=== PATIENT | male | born 1990 | race Caucasian/White ===

== ENCOUNTER 2021-11-12 14:45 | Observation (INO) ==
[2021-11-12] MEDS ORDERED: ASPIRIN CHEW 324 MG PO STA (15:22)
[2021-11-12] MEDS ORDERED: NITROGLYCERIN SL 0.4 MG/TAB TAB SL PRN (15:22)
[2021-11-12 15:37] LABS: Basophils # (auto) 0.01 K/uL (0-0.2); Basophils % (auto) 0.1 %; Eosinophils # (auto) 0.14 K/uL (0-0.5); Eosinophils % (auto) 1.7 %; Hemoglobin 14.6 g/dL (14.0-18.0); Immature Granulocytes # (auto) 0.01 K/uL (0.00-0.02); Immature Granulocytes % (auto) 0.1 %; Lymphocytes # (auto) 3.21 K/uL (1.2-3.4); Lymphocytes % (auto) 39.1 %; Mean Corpuscular Hemoglobin 29.5 pg (25-34); Mean Corpuscular Hgb Conc 34.8 g/dL (32-36); Mean Corpuscular Volume 84.8 fL (80-100); Mean Platelet Volume 9.8 fL (7.4-10.4); Monocytes # (auto) 0.53 K/uL (0.11-0.59); Monocytes % (auto) 6.4 %; Neutrophils # (auto) 4.32 K/uL (1.4-6.5); Neutrophils % (auto) 52.6 %; Platelet Count 256 K/uL (130-400); RDW Coefficient of Variation 12.9 % (11.5-14.5); RDW Standard Deviation 39.4 fL (36.4-46.3); Red Blood Count 4.95 M/uL (4.7-6.1); White Blood Count 8.22 K/uL (4.8-10.8)
[2021-11-12] MEDS ORDERED: NITROGLYCERIN 2% OINTMENT 30GM TUBE EXT STA (15:40)
[2021-11-12 15:49] LABS: D Dimer 220 ug/L FEU (0-500)
--- NOTE | 2021-11-12 15:51 | Emergency Department Note ---
Impression & Plan Left-sided chest pain, Hypertensive emergency, Abnormal ECG ED Provider Note INFORMANT: Patient ED PROVIDER(S): Jerad Hanna MD CHIEF COMPLAINT: Chest pain PLAN: Disposition: Admitted Condition: Good Outpatient prescription management: none Referral: None MEDICAL DECISION MAKING: Patient presented because of left-sided chest pain. His ECG was abnormal and had T wave inversions. No prior for comparison. The patient was markedly hypertensive with a systolic blood pressure of 241. Recheck revealed 250. The patient was given oral aspirin, sublingual nitroglycerin, and Nitropaste. Patient was reassessed and felt better. His pain resolved. He was still markedly hypertensive albeit somewhat better. He was given a dose of IV labetalol. I discussed further management in the hospital and the patient was in agreement. Consultation was made to the [facility] service. Patient was evaluated in the ER admitted for further management. Triage Nursing notes reviewed and agree them. Vital Signs: reviewed and remarkable for marked hypertension. Differential diagnosis: Hypertensive emergency, cardiac ischemia, aortic dissection, pulmonary embolism, pneumothorax, pneumonia, pericarditis, myocarditis, esophageal rupture, GERD, cholecystitis, pancreatitis, musculoskeletal, as well as other pathologies. Diagnostics interpreted by me: ECG: Twelve-lead ECG reveals a normal sinus rhythm at 91 bpm. T wave abnormality laterally with inversions present. No ST elevation. No PACs or PVCs. No prior for comparison. Cardiac Monitoring: Cardiac monitoring ordered by me: The patient was placed on continuous cardiac monitoring and observed. It revealed a sinus tachycardia rhythm at 102 beats per minute without ectopy or evidence of dysrhythmia. Imaging studies: Chest x-ray. Findings: A chest x-ray was performed and revealed no pneumothorax, effusion, infiltrate, pulmonary edema, free air under the diaphragm, or wide mediastinum. Impression: No acute disease. HPI: The patient is a 31year old male who presents to the Emergency Room with complaints of left-sided chest. This started last night and is waxing and waning.. The patient also notes the following associated symptoms, left arm. The patient has taken time relieving factors. Current pain is rated as 1 in the chest and 3 in the arm over 10. Patient states pain was up to a 5. Patient was previously diagnosed with hypertension but has not taken medication in over 1 year due to financial reasons. Pt denies LOC, headache, fevers, chills, diaphoresis, visual changes, neck pain, breathing difficulties, nausea, vomiting, abdominal pain, back pain, melena, hematochezia, urinary symptoms, numbness, weakness, lymphadenopathy, rash, or other complaints. ROS: See above HPI for pertinent positives & negatives. A total of 10 systems reviewed and were otherwise negative. PAST MEDICAL HISTORY:See Below , hypertension PAST SURGICAL HISTORY:See Below, FAMILY HISTORY:See Below, early CAD, hypertension SOCIAL HISTORY:See Below, employed HOME MEDICATIONS:See Below ALLERGIES:See Below VITALS:See Below PHYSICAL EXAMINATION: GENERAL: Awake, alert, well-appearing, in no distress HENT: Normocephalic, atraumatic. Oropharynx unremarkable. EYES: Normal conjunctiva. Sclera non-icteric. NECK: Inspection normal. Non-tender. Supple. No nuchal rigidity. FROM. No masses. RESPIRATORY: Clear to auscultation. No wheezes. No rales. Normal respiratory effort. CARDIAC: Normal rate. Normal rhythm. No murmurs. No rubs. Extremities warm and well perfused. Pulses equal. No JVD. GI: Soft, non-distended. No tenderness to palpation. No rebound or guarding. No masses. RECTAL: Deferred. MUSCULOSKELETAL: Atraumatic. Chest examination reveals no tenderness. The back is symmetrical on inspection without obvious abnormality. There is no CVA tenderness to palpation. No joint edema. LOWER EXTREMITIES: Calves are equal size bilaterally and non-tender. No edema. No discoloration. NEURO: Normal sensorium. No sensory or motor deficits noted. SKIN: No rash or jaundice noted. Jerad Hanna MD Past Med/Surg History Medical History (Updated 11/12/21 @ 15:51 by Jerad Hanna MD) Asthma Attention deficit hyperactivity disorder Dental decay Elevated blood pressure reading without diagnosis of hypertension Hypertension Morbid obesity Morbid obesity with BMI of 50.0-59.9, adult Palpitations Sinusitis Surgical History (Updated 08/17/20 @ 12:51 by Nuris Arndt RN) H/O tooth extraction Family History (Updated 08/17/20 @ 12:52 by Nuris Arndt RN) Grandmother Cancer Diabetes Uncle Hypertension Grandfather Hypertension Social History (Updated 08/17/20 @ 12:53 by Nuris Arndt RN) Smoking Status: Never smoker Hx Alcohol Use: Yes Alcohol Intake Frequency: Monthly or Less Hx Substance Use: Yes Non-Prescribed Medications: Marijuana Last Used Subst ance: Unknown Last Used Substance Other:: "long ago" Preferred Language: Croatian marital status: Life Partner current occupational status: employed current occupation: automotive glass installer Feels Safe at Home: Yes Allergies Allergies Allergy/AdvReac Type Severity Reaction Status Date / Time pheniramine Allergy Unknown HALLUCINATI Verified 08/17/20 12:49 ONS phenyltoloxamine Allergy Unknown HALLUCINATI Verified 08/17/20 12:49 ONS pyrilamine Allergy Unknown HALLUCINATI Verified 08/17/20 12:49 ONS MUCINEX Allergy Unknown Swelling Uncoded 08/17/20 12:49 of throat. Home Meds Previous Rx's Medication Instructions Recorded amlodipine 5 mg tablet 5 mg PO DAILY #30 tab 08/08/20 Results & Data (ED) Vital Signs Vital Signs - 24 hr 11/12/21 15:00 11/12/21 15:40 11/12/21 15:50 Temperature 36.9 C Temperature Source Temporal Artery Scan Pulse Rate 102 H 88 95 H Pulse Rate [Apical] Pulse Rate from SpO2 Sensor 88 95 H Pulse Rhythm Pulse Rhythm [Apical] Pulse Strength [Apical] Respiratory Rate 18 19 22 Respiratory Effort / Characteristics Non-Labored Respiratory Depth Normal Respiratory Pattern Blood Pressure 241/157 H Blood Pressure [Left Arm] Blood Pressure Mean 185 Blood Pressure Mean [Left Arm] Blood Pressure Position [Left Arm] Pulse Oximetry 96 98 96 Oxygen Delivery Method Room Air Room Air Room Air Sepsis Recent Fever Within 48 Hours No Sepsis New/Unexplained Change in Mental Status No Sepsis Action Taken by Nursing No Action Required 11/12/21 15:51 11/12/21 16:00 11/12/21 16:10 Temperature Temperature Source Pulse Rate 93 H 83 83 Pulse Rate [Apical] 96 H Pulse Rate from SpO2 Sensor 93 H 83 83 Pulse Rhythm Regular Pulse Rhythm [Apical] Regular Pulse Strength [Apical] Normal Respiratory Rate 22 26 H 26 H Respiratory Effort / Characteristics Non-Labored Respiratory Depth Normal Respiratory Pattern Regular Blood Pressure 198/136 H 216/139 H 222/152 H Blood Pressure [Left Arm] 198/136 H Blood Pressure Mean 156 164 175 Blood Pressure Mean [Left Arm] 156 Blood Pressure Position [Left Arm] Lying Pulse Oximetry 95 96 96 Oxygen Delivery Method Room Air Sepsis Recent Fever Within 48 Hours Sepsis New/Unexplained Change in Mental Status Sepsis Action Taken by Nursing 11/12/21 16:32 Temperature Temperature Source Pulse Rate Pulse Rate [Apical] 76 Pulse Rate from SpO2 Sensor Pulse Rhythm Pulse Rhythm [Apical] Regular Pulse Strength [Apical] Respiratory Rate 18 Respiratory Effort / Characteristics Non-Labored Respiratory Depth Normal Respiratory Pattern Regular Blood Pressure Blood Pressure [Left Arm] 236/146 H Blood Pressure Mean Blood Pressure Mean [Left Arm] 176 Blood Pressure Position [Left Arm] Lying Pulse Oximetry 97 Oxygen Delivery Method Room Air Sepsis Recent Fever Within 48 Hours Sepsis New/Unexplained Change in Mental Status Sepsis Action Taken by Nursing Laboratory Data Result diagrams: 11/12/21 15:20 11/12/21 15:20 Lab Results 11/12/21 11/12/21 11/12/21 Range/Units 15:20 15:20 15:20 WBC 8.22 (4.8-10.8) K/uL RBC 4.95 (4.7-6.1) M/uL Hgb 14.6 (14.0-18.0) g/dL Hct 42.0 (42-52) % MCV 84.8 (80-100) fL MCH 29.5 (25-34) pg MCHC 34.8 (32-36) g/dL RDW Std Deviation 39.4 (36.4-46.3) fL RDW Coeff of Noelle 12.9 (11.5-14.5) % Plt Count 256 (130-400) K/uL MPV 9.8 (7.4-10.4) fL Immature Gran % (Auto) 0.1 % Neut % (Auto) 52.6 % Lymph % (Auto) 39.1 % [place] % (Auto) 6.4 % Eos % (Auto) 1.7 % Baso % (Auto) 0.1 % Neut # (Auto) 4.32 (1.4-6.5) K/uL Lymph # (Auto) 3.21 (1.2-3.4) K/uL [place] # (Auto) 0.53 (0.11-0.59) K/uL Eos # (Auto) 0.14 (0-0.5) K/uL Baso # (Auto) 0.01 (0-0.2) K/uL Immature Gran # (Auto) 0.01 (0.00-0.02) K/uL D-Dimer 220 (0-500) ug/L FEU Sodium (136-145) mmol/L Potassium (3.5-5.1) mmol/L Chloride (98-107) mmol/L Carbon Dioxide (21-32) mmol/L Anion Gap (3-11) BUN (6-23) mg/dl Creatinine (0.6-1.4) mg/dl Est Cr Clr Drug Dosing ml/min Est GFR ( Amer) ml/min Est GFR (Non-Af Amer) ml/min BUN/Creatinine Ratio (10-20) Glucose (70-99(Fasting)) mg/dl Calcium (8.5-10.1) mg/dl Total Bilirubin (0.2-1.0) mg/dl AST (13-39) U/L ALT (7-52) U/L Alkaline Phosphatase (34-104) U/L Troponin I High Sens 12.0 (0-20) pg/ml Total Protein (6.0-8.3) gm/dl Albumin (3.4-5.0) gm/dl Globulin (2.5-4.0) gm/dl Albumin/Globulin Ratio (0.9-2) Lipase (11-82) U/L 11/12/21 Range/Units 15:20 WBC (4.8-10.8) K/uL RBC (4.7-6.1) M/uL Hgb (14.0-18.0) g/dL Hct (42-52) % MCV (80-100) fL MCH (25-34) pg MCHC (32-36) g/dL RDW Std Deviation (36.4-46.3) fL RDW Coeff of Noelle (11.5-14.5) % Plt Count (130-400) K/uL MPV (7.4-10.4) fL Immature Gran % (Auto) % Neut % (Auto) % Lymph % (Auto) % [place] % (Auto) % Eos % (Auto) % Baso % (Auto) % Neut # (Auto) (1.4-6.5) K/uL Lymph # (Auto) (1.2-3.4) K/uL [place] # (Auto) (0.11-0.59) K/uL Eos # (Auto) (0-0.5) K/uL Baso # (Auto) (0-0.2) K/uL Immature Gran # (Auto) (0.00-0.02) K/uL D-Dimer (0-500) ug/L FEU Sodium 141 (136-145) mmol/L Potassium 3.7 (3.5-5.1) mmol/L Chloride 104 (98-107) mmol/L Carbon Dioxide 30 (21-32) mmol/L Anion Gap 7 (3-11) BUN 18 (6-23) mg/dl Creatinine 1.23 (0.6-1.4) mg/dl Est Cr Clr Drug Dosing 124.0 ml/min Est GFR ( Amer) 91.4 ml/min Est GFR (Non-Af Amer) 78.8 ml/min BUN/Creatinine Ratio 14.6 (10-20) Glucose 107 H (70-99(Fasting)) mg/dl Calcium 9.0 (8.5-10.1) mg/dl Total Bilirubin 0.4 (0.2-1.0) mg/dl AST 17 (13-39) U/L ALT 25 (7-52) U/L Alkaline Phosphatase 67 (34-104) U/L Troponin I High Sens (0-20) pg/ml Total Protein 7.4 (6.0-8.3) gm/dl Albumin 4.3 (3.4-5.0) gm/dl Globulin 3.1 (2.5-4.0) gm/dl Albumin/Globulin Ratio 1.4 (0.9-2) Lipase 23 (11-82) U/L Administered Medications Nitroglycerin (Nitroglycerin Sl 0.4 Mg/Tab Tab) 0.4 mg SL UD PRN PRN Reason: Chest Pain Stop: 12/12/21 15:21 Last Admin: 11/12/21 15:47 Dose: 0.4 mg Documented by: [id number] Discontinued Medications Aspirin (Aspirin Chew 324 Mg) 324 mg PO NOW STA Stop: 11/12/21 15:23 Last Admin: 11/12/21 15:47 Dose: 324 mg Documented by: [id number] Labetalol HCl (Labetalol Hcl Iv 5 Mg/Ml 20ml) 10 mg IV NOW STA Stop: 11/12/21 16:19 Last Admin: 11/12/21 16:28 Dose: 10 mg Documented by: [id number] Cosigned by: [id number] Nitroglycerin (Nitroglycerin 2% Ointment 30gm Tube) 0.5 inch EXT NOW STA Stop: 11/12/21 15:41 Last Admin: 11/12/21 15:48 Dose: 0.5 inch Documented by: [id number] Imaging Data Radiologist's Impression: Chest X-Ray 11/12/21 15:23 XR chest 1V portable HISTORY: Atypical Chest Pain COMPARISON: None. FINDINGS: There are low lung volumes. The cardiac silhouette is mildly enlarged. No focal lung consolidations to suggest pneumonia. No evidence for pulmonary edema. No pleural fusions. No pneumothorax. IMPRESSION: Mild enlargement of the cardiac silhouette. This may be accentuated by the low lung volumes. ACT 112: Negative or not required by law. Electronically signed by: Griffin Maharaj M.D. 11/12/2021 3:57 PM Discharge Plan Visit Data Chief Complaint: Chest Pain Stated Complaint: CHEST PAINS, LEFT ARM PAIN ED Provider: Jerad Hanna Discharge Problem: Left-sided chest pain, Hypertensive emergency, Abnormal ECG Forms Stand Alone Forms: [facility] [employer] Prescriptions Prescriptions: No Action amlodipine 5 mg tablet 5 mg PO DAILY Qty: 30 RF: 0 Referrals Referrals: PCP,NO [Primary Care Provider] -
--- NOTE | 2021-11-12 15:58 | XRay Report ---
XR chest 1V portable HISTORY: Atypical Chest Pain COMPARISON: None. FINDINGS: There are low lung volumes. The cardiac silhouette is mildly enlarged. No focal lung consol idations to suggest pneumonia. No evidence for pulmonary edema. No pleural fusions. No pneumothorax. IMPRESSION: Mild enlargement of the cardiac silhouette. This may be accentuated by the low lung volumes. ACT 112: Negative or not required by law. Electronically signed by: Griffin Maharaj M.D. 11/12/2021 3:57 PM
[2021-11-12 16:00] LABS: Albumin Globulin Ratio 1.4 (0.9-2); Albumin Level 4.3 gm/dl (3.4-5.0); BUN Creatinine Ratio 14.6 (10-20); Bilirubin,Total 0.4 mg/dl (0.2-1.0); Est GFR (African American) 91.4 ml/min; Est GFR (Non-African American) 78.8 ml/min; Globulin 3.1 gm/dl (2.5-4.0); Potassium 3.7 mmol/L (3.5-5.1); Total Protein 7.4 gm/dl (6.0-8.3)
[2021-11-12] MEDS ORDERED: LABETALOL HCL IV 5 MG/ML 20ML IV STA ×2 (16:18→18:47)
[2021-11-12] MEDS ORDERED: hydrALAZINE HCL 20 MG/ML VIAL IV PRN (16:41)
[2021-11-12] MEDS ORDERED: LABETALOL HCL IV 5 MG/ML 20ML IV PRN ×2 (16:41→19:37)
--- NOTE | 2021-11-12 16:59 | History & Physical Report ---
Date of Service November 12, 2021 Assessment & Plan (1) Left-sided chest pain: (2) Hypertensive emergency: Plan: #. Chest pressure/rule out ACS #. Hypertensive emergency Patient has history of hypertension, noncompliance with medication [see HPI]. Presenting blood pressure of 241/157 Patient presented with chest pressure, radiating to left arm today prior to presentation [see HPI] Admitting EKG with lateral T wave inversion, EKG as needed for chest pain, patient reporting some improvement with chest pain after receiving nitro sublingual/Nitropaste/aspirin full dose in the ED. Trend troponin, cardiology consult. Echo. Lisinopril HCTZ combination started, uptitrate medications as appropriate As needed blood pressure medications ordered. Patient counseled regarding the seriousness of his blood pressure management and the consequences of his noncompliance with medication/medical follow-up. Advised low-salt diet. Patient will need to establish PCP upon discharge and might need follow-up with cardiology as an outpatient. #. DVT prophylaxis: Heparin #. Full code History of Present Illness Chief Complaint: Chest pressure Primary Care Provider: NO PCP 31-year-old morbidly obese patient with PMH of hypertension, noncompliance [never took his previously prescribed lisinopril HCTZ tablet and his amlodipine tablets at different times], with no doctor follow-up in the last 6 to 7 years, with extensive cardiac history in the family presented to the ED 11/12 with complaint of chest pressure since last evening prior to arrival. Per patient, his chest pressure developed at around 6 PM yesterday when he was playing video games, 3/10 in intensity, has been continued ever since upto the presentation to ED when the pain got better with the nitro sublingual/nitro paste and full dose aspirin. He also reports pain better with rest but cannot figure any aggravating factors. He also complained of left arm pain that started 20-minute prior to arrival to the ED which also improved with the medications in the ED. Patient reports having the feeling of palpitation when the chest pressure started but no diaphoresis or nausea. Patient denies headache/dizziness/sore throat/cough/belly pain/any acute changes in his bowel or bladder habits/other review of symptoms. Patient has history of hypertension, was prescribed lisinopril HCTZ and amlodipine at different times, never took any of the medication, never followed up with any doctors in the last 6 to 7 years. 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 Family history significant for every uncle having RI before age 30, patient reports that his grandfather of RI in his 50s. His grandmother has diabetes per patient. Patient denies smoking tobacco, drinks maybe once a month, very occasionally uses marijuana, no other recreational drug use. Full code Allergies Allergy/AdvReac Type Severity Reaction Status Date / Time pheniramine Allergy Unknown HALLUCINATI Verified 08/17/20 12:49 ONS phenyltoloxamine Allergy Unknown HALLUCINATI Verified 08/17/20 12:49 ONS pyrilamine Allergy Unknown HALLUCINATI Verified 08/17/20 12:49 ONS MUCINEX Allergy Unknown Swelling Uncoded 08/17/20 12:49 of throat. Home Medications Medication Instructions Recorded Confirmed Type amlodipine 5 mg tablet 5 mg PO DAILY #30 tab 08/08/20 08/17/20 Rx Past Med/Surg History Medical History (Updated 11/12/21 @ 15:51 by Jerad Hanna MD) Asthma Attention deficit hyperactivity disorder Dental decay Elevated blood pressure reading without diagnosis of hypertension Hypertension Morbid obesity Morbid obesity with BMI of 50.0-59.9, adult Palpitations Sinusitis Surgical History (Updated 08/17/20 @ 12:51 by Nuris Arndt RN) H/O tooth extraction Family History (Updated 08/17/20 @ 12:52 by Nuris Arndt RN) Grandmother Cancer Diabetes Uncle Hypertension Grandfather Hypertension Social History (Updated 08/17/20 @ 12:53 by Nuris Arndt RN) Smoking Status: Never smoker Hx Alcohol Use: Yes Alcohol Intake Frequency: Monthly or Less Hx Substance Use: Yes Non-Prescribed Medications: Marijuana Last Used Substance: Unknown Last Used Substance Other:: "long ago" Preferred Language: Qatari marital status: Life Partner current occupational status: employed current occupation: automotive mechanic Feels Safe at Home: Yes Review of Systems Review of Systems: Negative as otherwise mentioned in HPI. Physical Exam Physical Exam: GENERAL: Alert and oriented x3. NAD, on RA. Morbidly obese HEENT: No pallor, no icterus. Pupils equal, round and reactive to light. Oral mucosa moist. NECK: No JVD, no neck masses. HEART: S1 and S2 heard. Regular rate and rhythm. No murmur, no gallop. RESPIRATORY SYSTEM: Normal AP diameter. No accessory muscle use. No wheezing, no crackles. ABDOMEN: Soft, bowel sounds present, nontender, no distention. CENTRAL NERVOUS SYSTEM: No facial droop. Speech is clear. Obeys simple commands. Moves extremities. EXTREMITIES: No edema, no erythema seen. Results & Data Results & Data ([facility]) Vital Signs (Past 12 Hours) Vital Signs Temp Pulse Pulse Resp BP BP Pulse Ox 11/12/21 16:32 76 18 236/146 H 97 11/12/21 16:10 83 26 H 222/152 H 96 11/12/21 16:00 83 26 H 216/139 H 96 11/12/21 15:51 93 H 96 H 22 198/136 H 198/136 H 95 11/12/21 15:50 95 H 22 96 11/12/21 15:40 88 19 98 11/12/21 15:00 36.9 C 102 H 18 241/157 H 96 Code Status & VTE Plan VTE Prophylaxis Plan VTE Prophylaxis will be ordered: Yes
[2021-11-12] MEDS ORDERED: LISINOPRIL/HCTZ 10/12.5MG TAB PO SCH (17:45)
[2021-11-12] MEDS ORDERED: hydrALAZINE HCL 20 MG/ML VIAL IV STA (19:56)
[2021-11-12] MEDS: NITROGLYCERIN 2% OINTMENT 30GM TUBE EXT SCH (20:19)
[2021-11-12] MEDS ORDERED: lisinopril 10 MG TAB PO STA (21:16)
[2021-11-12] MEDS: HEPARIN SOD 5,000 UNIT/0.5 ML VIAL SQ SCH (22:10)
[2021-11-13] MEDS: NITROGLYCERIN 2% OINTMENT 30GM TUBE EXT SCH ×4 (01:22→20:00)
[2021-11-13 01:42] LABS: Appearance Urine Clear (Clear); Bilirubin Urine Negative (Negative); Blood Urine Negative (Negative); Color Urine Yellow; Glucose Urine UA Negative (Negative); Ketones Urine Negative (Negative); Leukocyte Esterase Urine Negative (Negative); Nitrite Urine Negative (Negative); Protein Urine Negative (Negative); Specific Gravity Urine 1.016 (1.000-1.030); Urobilinogen Urine Negative (Negative)
[2021-11-13 04:13] LABS: Hematocrit (blood only) 40.6 % (42-52); Mean Corpuscular Hgb Conc 34.5 g/dL (32-36); Mean Corpuscular Volume 86.9 fL (80-100); Mean Platelet Volume 9.6 fL (7.4-10.4); Platelet Count 241 K/uL (130-400); RDW Standard Deviation 41.4 fL (36.4-46.3); Red Blood Count 4.67 M/uL (4.7-6.1); White Blood Count 12.74 K/uL (4.8-10.8)
[2021-11-13 04:44] LABS: Calcium 8.8 mg/dl (8.5-10.1); Chol HDL Ratio 3.6 (0-5); Creatinine Clr Calc Pharmacy 144.6 ml/min; Est GFR (African American) 101.2 ml/min; Est GFR (Non-African American) 87.4 ml/min; Phosphorus 4.1 mg/dl (2.5-4.9); Potassium 3.6 mmol/L (3.5-5.1)
[2021-11-13 04:59] LABS: Thyroid Stimulating Hormone 5.339 uIu/ml (0.300-4.500)
[2021-11-13] MEDS: HEPARIN SOD 5,000 UNIT/0.5 ML VIAL SQ SCH ×4 (05:21→22:00)
[2021-11-13 05:32] LABS: T4 Free Thyroxine 0.93 ng/dl (0.61-1.60)
[2021-11-13 08:45] LABS: Estimated Average Glucose 105 mg/dl; Hemoglobin A1C 5.3 % (4.5-5.6)
[2021-11-13] MEDS ORDERED: LISINOPRIL/HCTZ 20/12.5MG 1 TAB TAB PO SCH (09:00)
[2021-11-13] MEDS ORDERED: LISINOPRIL/HCTZ 20/12.5MG 1 TAB TAB PO ONE (10:24)
--- NOTE | 2021-11-13 10:32 | Cardiology Consultation ---
Date of Consultation November 13, 2021 Assessment & Plan (1) Hypertensive emergency: (2) Left-sided chest pain: (3) Abnormal ECG: (4) Morbid obesity with BMI of 50.0-59.9, adult: Chest pain due to hypertensive urgency. Will increase lisinopril HCTZ to 40/25 mg daily and follow blood work as an outpatient. 2D echocardiogram without wall motion abnormality or evidence of significant hypertensive heart disease Will complete secondary work-up including renal artery ultrasound, nocturnal pulse ox and plasma metanephrines. Will monitor overnight tonight for blood pressure control. Therapeutic lifestyle changes discussed at great lengths, patient is eager to implement them. Will need to perform an outpatient ischemic evaluation prior to starting an exercise program and patient agrees to follow-up as recommended Recommend follow-up with me as an outpatient in 2 weeks. Will also need to establish with a PCP upon discharge. Continue to monitor on telemetry overnight. History of Present Illness Reason for Consultation: chest pain Requesting Physician: Dr. Borjas Attending Physician: Louis Catherine MD History of Present Illness Pt is a 31 yo male who present yesterday evening with chest pressure and left arm discomfort alongside a blood pressure of 241/157. The pressure on his chest started on 11/11, pt went to sleep anticipating it to go away, only to wake up the next morning with continued and increased pressure. Pt denied any sweating, lightheadedness, or dizziness. He was brought to the ER by his boss later in the day when the pain continued. When he arrived at the hospital he was treated with nitroglycerin, aspirin, and labetalol. His EKG showed regular rate and nonspecific T wave changes. His chest and arm pain drastically reduced overnight. Previously he had been told he had hypertension as an incidental finding following a dental procedure. Due to insurance loss and job change, pt never followed up with PCP. Currently, pt denies any chest pressure or pain, SOB, or lightheadedness. Allergies Allergy/AdvReac Type Severity Reaction Status Date / Time pheniramine Allergy Unknown HALLUCINATI Verified 08/17/20 12:49 ONS phenyltoloxamine Allergy Unknown HALLUCINATI Verified 08/17/20 12:49 ONS pyrilamine Allergy Unknown HALLUCINATI Verified 08/17/20 12:49 ONS MUCINEX Allergy Unknown Swelling Uncoded 08/17/20 12:49 of throat. Home Medications Medication Instructions Recorded Confirmed Type amlodipine 5 mg tablet 5 mg PO DAILY #30 tab 08/08/20 08/17/20 Rx Patient History Medical History Asthma Attention deficit hyperactivity disorder Dental decay Elevated blood pressure reading without diagnosis of hypertension Hypertension Morbid obesity Morbid obesity with BMI of 50.0-59.9, adult Palpitations Sinusitis Surgical History H/O tooth extraction Family History Grandmother Cancer Diabetes Uncle Hypertension Grandfather Hypertension Social History Smoking Status: Former smoker Hx Alcohol Use: Yes Alcohol Intake Frequency: Monthly or Less Hx Substance Use: Yes Non-Prescribed Medications: Marijuana Last Used Substance: Unknown Last Used Substance Other:: "long ago" Preferred Language: Ukrainian Turnaround Engineer Required: No Beliefs That Will Affect Care: None marital status: Life Partner Current Living Situation: Other Current Living Situation Comment: Partner current occupational status: employed current occupation: automotive refinisher Feels Safe at Home: Yes Assistive Devices: None Review of Systems Review of Systems: All systems reviewed & are unremarkable except as noted in HPI & below Physical Exam Physical Exam: Physical Exam: General: Awake, alert and oriented x 3. No acute distress. HEENT: Normocephalic, atraumatic. Pupils equal, round and reactive to light and accommodation. Extraocular muscles are intact. Anicteric sclera. Moist mucous membranes. Neck: No JVD. No bruit. Cardiovascular: Regular. No S-4. Normal S-1 and S-2. No S-3. No murmurs, rubs or gallops. Pulmonary: Clear to auscultation bilaterally. No rales, rhonchi, or wheezing. Abdomen: Bowel sounds x 4, soft. No rebound, guarding or tenderness. No organomegaly. Extremities: No clubbing, cyanosis or edema. +2 pedal pulses bilaterally. Skin: Warm and dry. Results & Data ([facility]) Vital Signs (Past 12 Hours) Vital Signs Temp Pulse Pulse Resp BP BP Pulse Ox 11/13/21 07:29 37.0 C 65 19 166/104 H 97 11/13/21 07:26 84 11/13/21 05:01 69 11/13/21 03:15 36.8 C 76 18 180/104 H 97 11/12/21 23:09 37.0 C 92 H 18 182/110 H 97
[2021-11-13] MEDS ORDERED: ALUMINUM/MAGNESIUM SUSP 30 ML UDC PO STA (10:49)
[2021-11-13] MEDS ORDERED: ACETAMINOPHEN 325 MG TAB PO PRN (10:50)
[2021-11-13] MEDS ORDERED: amLODIPine BESYLATE 5 MG TAB PO ONE (16:00)
--- NOTE | 2021-11-13 16:12 | Ultrasound Report ---
DOPPLER ULTRASOUND OF THE RENAL ARTERIES CLINICAL HISTORY: Hypertension. COMPARISON STUDY: No priors. TECHNIQUE: Doppler sonography of the renal arteries was performed to assess renal artery stenosis. Im ages are reviewed in the transverse and longitudinal planes. FINDINGS: The kidneys appear normal in size and echotexture. The right kidney measures 11.9 cm in length and th e left kidney measures 13.0 cm in length. There is no hydronephrosis. On the right, intrarenal arterial resistive indices range from 0.45 to 0.61. Intrarenal arterial wave forms are normal with brisk upstrokes. The right renal arterial waveform is normal, and velocities wi thin the mid to distal right renal artery measure up to 77 cm/sec. The proximal renal artery was not well visualized. The right renal vein is patent. On the left, intrarenal arterial resistive indices range from 0.42 to 0.59. Intrarenal arterial wave forms are normal with brisk upstrokes. The left renal arterial waveform is normal, and velocities wit hin the distal left renal artery measure up to 37 cm/sec. The proximal to mid portions of the left re nal artery are not visualized. The left renal vein is patent. The abdominal aorta is patent. Velocities within the abdominal aorta measure up to 90 cm/s. IMPRESSION: There is no sonographic evidence of renal artery stenosis. ACT 112: Negative or not required by law. Electronically signed by: Khris Foster M.D. 11/13/2021 4:11 PM
--- NOTE | 2021-11-13 16:35 | Hospitalist Progress Note ---
Date of Service November 13, 2021 Assessment & Plan (1) Left-sided chest pain: Plan: Chest pain possible due to Hypertensive urgency Troponin x3 negative EKG showed nonspecific T wave changes ECHO showed segmental left ventricular wall motion abnormalities. EF 55 to 60 % Cardiology on board plan to perform an outpatient ischemic evaluation prior to starting an exercise program Clinically improves Follow up with cardiology in 2 weeks Continue monitor in telemetry as per cardiology (2) Hypertensive emergency: Plan: BP on admission 241/157 Noncompliance with medication Lisinopril/HCTZ increased to 40/25 mg Doppler renal artery u/s showed no sonographic evidence of renal artery stenosis. Will get an overnight pulse oximetry Continue monitor BP Abnormal TSH TSH 5.3 and Free T4 0.93 Will need to repeat TSH in 4 weeks DVT px on heparin subq Code status Full code Admission and Anticipated Discharge Date Admission Date: November 12, 2021 Subjective Pt was seen and examined for follow of chest pain and elevated BP Lying in bed with no acute distress watching TV Pt said that he feels ok denies any chest pain, palpitation, dizziness and SOB Review of Systems Review of Systems: All systems reviewed & are unremarkable except as noted in Subjective Physical Exam Physical Exam: General- No acute distress, obesity Head- atraumatic Eyes- PERRL, EOMI, ENT- oropharynx clear Neck- supple, no JVD Lungs- clear to auscultation Heart- regular rhythm; no murmur Abdomen- normal bowel sounds, soft, nontender Extremities- no calf tenderness Neuro- alert, oriented x 3; PERRL, EOMI; no facial palsy; no dysarthria Skin- warm & dry Results & Data Results & Data ([facility]) Vital Signs (Past 12 Hours) Vital Signs Temp Pulse Pulse Resp BP BP Pulse Ox 11/13/21 15:34 37.3 C 87 20 169/82 H 98 11/13/21 14:49 93 H 11/13/21 11:17 37.2 C 86 17 153/92 H 97 11/13/21 10:36 168/102 H 11/13/21 07:29 37.0 C 65 19 166/104 H 97 11/13/21 07:26 84 11/13/21 05:01 69
[2021-11-14] MEDS: NITROGLYCERIN 2% OINTMENT 30GM TUBE EXT SCH (01:45)
[2021-11-14] MEDS: HEPARIN SOD 5,000 UNIT/0.5 ML VIAL SQ SCH ×2 (06:02→15:19)
[2021-11-14 07:25] LABS: BUN Creatinine Ratio 17.8 (10-20); Calcium 8.6 mg/dl (8.5-10.1); Creatinine Clr Calc Pharmacy 125.4 ml/min; Est GFR (African American) 86.3 ml/min; Est GFR (Non-African American) 74.4 ml/min
[2021-11-14] MEDS ORDERED: TRIAMTERENE/HCTZ 37.5/25MG CAP PO SCH (09:00)
[2021-11-14] MEDS ORDERED: LISINOPRIL/HCTZ 20/12.5MG 1 TAB TAB PO SCH (09:00)
[2021-11-14] MEDS ORDERED: LOSARTAN POTASSIUM 50 MG TAB PO SCH (09:00)
[2021-11-14] MEDS ORDERED: amLODIPine BESYLATE 5 MG TAB PO SCH (09:00)
--- NOTE | 2021-11-14 14:47 | Cardiology Progress Note ---
Date of Service November 14, 2021 Assessment & Plan (1) Hypertensive emergency: (2) Left-sided chest pain: (3) Abnormal ECG: (4) Morbid obesity with BMI of 50.0-59.9, adult: Plan: Chest pain due to hypertensive urgency. BP remains significantly elevated despite the med changes made so at this point I will d/c his lisinopril/hctz in favor of maxide 37.5/25, amlodipine 10mg and losartan 100mg Ok to d/c to home once systolic pressure less than 160 mmhg will require close outpatient f/u with me along with stress testing also needs to establish with a pcp Admission and Anticipated Discharge Date Admission Date: November 12, 2021 Subjective Pt seen and examined, chart reviewed. No complaints overnight. Review of Systems Review of Systems: All systems reviewed & are unremarkable except as noted in HPI & below Physical Exam Physical Exam: Physical Exam: General: Awake, alert and oriented x 3. No acute distress. HEENT: Normocephalic, atraumatic. Pupils equal, round and reactive to light and accommodation. Extraocular muscles are intact. Anicteric sclera. Moist mucous membranes. Neck: No JVD. No bruit. Cardiovascular: Regular. No S-4. Normal S-1 and S-2. No S-3. No murmurs, rubs or gallops. Pulmonary: Clear to auscultation bilaterally. No rales, rhonchi, or wheezing. Abdomen: Bowel sounds x 4, soft. No rebound, guarding or tenderness. No organomegaly. Extremities: No clubbing, cyanosis or edema. +2 pedal pulses bilaterally. Skin: Warm and dry. Results & Data ([facility]) Vital Signs (Past 12 Hours) Vital Signs Temp Pulse Pulse Pulse Resp BP Pulse Ox 11/14/21 12:37 168/110 H 11/14/21 12:20 157/109 H 11/14/21 11:46 36.9 C 83 18 162/104 H 98 11/14/21 07:48 37.1 C 86 18 168/98 H 96 11/14/21 07:40 81 11/14/21 03:53 37.1 C 79 18 153/94 H 98 11/14/21 03:00 77 Pulse Ox 11/14/21 12:37 11/14/21 12:20 11/14/21 11:46 11/14/21 07:48 11/14/21 07:40 11/14/21 03:53 11/14/21 03:00 96
--- NOTE | 2021-11-14 15:26 | Hospitalist Progress Note ---
Date of Service November 14, 2021 Assessment & Plan (1) Left-sided chest pain: Plan: Chest pain possible due to Hypertensive urgency Troponin x3 negative EKG showed nonspecific T wave changes ECHO showed segmental left ventricular wall motion abnormalities. EF 55 to 60 % Cardiology on board plan to perform an outpatient ischemic evaluation prior to starting an exercise program Clinically improves Follow up with cardiology in 2 weeks Stable (2) Hypertensive emergency: Plan: BP on admission 241/157 Noncompliance with medication Doppler renal artery u/s showed no sonographic evidence of renal artery stenosis. overnight pulse oximetry showed no desaturation Lisinopril/HCTZ discontinued and starting on Maxide 37.5/25, Amlodipine 10mg and losartan 100mg Ok to d/c to home once systolic pressure less than 160 mmhg Continue monitor BP Check BMP outpatient in 1 week Abnormal TSH TSH 5.3 and Free T4 0.93 Will need to repeat TSH in 4 weeks Obesity BMI 53.5 Counseling on weight lost DVT px on heparin subq Code status Full code Admission and Anticipated Discharge Date Admission Date: November 12, 2021 Subjective Pt was seen and examined for follow up of HTN Sitting at the edge of the bed with no acute distress He said that he feels fine Denies any chest pain, palpitation, dizziness and SOB Review of Systems Review of Systems: All systems reviewed & are unremarkable except as noted in Subjective Physical Exam Physical Exam: General- No acute distress, obesity Head- atraumatic Eyes- PERRL, EOMI, ENT- oropharynx clear Neck- supple, no JVD Lungs- clear to auscultation Heart- regular rhythm; no murmur Abdomen- normal bowel sounds, soft, nontender Extremities- no calf tenderness Neuro- alert, oriented x 3; PERRL, EOMI; no facial palsy; no dysarthria Skin- warm & dry Results & Data Results & Data ([facility]) Vital Signs (Past 12 Hours) Vital Signs Temp Pulse Pulse Resp BP Pulse Ox 11/14/21 12:37 168/110 H 11/14/21 12:20 157/109 H 11/14/21 11:46 36.9 C 83 18 162/104 H 98 11/14/21 07:48 37.1 C 86 18 168/98 H 96 11/14/21 07:40 81 11/14/21 03:53 37.1 C 79 18 153/94 H 98
--- NOTE | 2021-11-14 16:17 | Discharge Summary ---
Date of Service November 14, 2021 Admission HPI Per Admitting Provider 31-year-old morbidly obese patient with PMH of hypertension, noncompliance [never took his previously prescribed lisinopril HCTZ tablet and his amlodipine tablets at different times], with no doctor follow-up in the last 6 to 7 years, with extensive cardiac history in the family presented to the ED 11/12 with complaint of chest pressure since last evening prior to arrival. Per patient, his chest pressure developed at around 6 PM yesterday when he was playing video games, 3/10 in intensity, has been continued ever since upto the presentation to ED when the pain got better with the nitro sublingual/nitro paste and full dose aspirin. He also reports pain better with rest but cannot figure any aggravating factors. He also complained of left arm pain that started 20-minute prior to arrival to the ED which also improved with the medications in the ED. Patient reports having the feeling of palpitation when the chest pressure started but no diaphoresis or nausea. Patient denies headache/dizziness/sore throat/cough/belly pain/any acute changes in his bowel or bladder habits/other review of symptoms. Patient has history of hypertension, was prescribed lisinopril HCTZ and amlodipine at different times, never took any of the medication, never followed up with any doctors in the last 6 to 7 years. 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 Family history significant for every uncle having PA before age 30, patient reports that his grandfather of PA in his 50s. His grandmother has diabetes per patient. Patient denies smoking tobacco, drinks maybe once a month, very occasionally uses marijuana, no other recreational drug use. Full code Admission Exam Per Admitting Provider GENERAL: Alert and oriented x3. NAD, on RA. Morbidly obese HEENT: No pallor, no icterus. Pupils equal, round and reactive to light. Oral mucosa moist. NECK: No JVD, no neck masses. HEART: S1 and S2 heard. Regular rate and rhythm. No murmur, no gallop. RESPIRATORY SYSTEM: Normal AP diameter. No accessory muscle use. No wheezing, no crackles. ABDOMEN: Soft, bowel sounds present, nontender, no distention. CENTRAL NERVOUS SYSTEM: No facial droop. Speech is clear. Obeys simple commands. Moves extremities. EXTREMITIES: No edema, no erythema seen. Principal Diagnosis Left-sided chest pain: Hypertensive emergency: Abnormal TSH Obesity Discharge Exam General- No acute distress, obesity Head- atraumatic Eyes- PERRL, EOMI, ENT- oropharynx clear Neck- supple, no JVD Lungs- clear to auscultation Heart- regular rhythm; no murmur Abdomen- normal bowel sounds, soft, nontender Extremities- no calf tenderness Neuro- alert, oriented x 3; PERRL, EOMI; no facial palsy; no dysarthria Skin- warm & dry Discharge Data Allergies Allergy/AdvReac Type Severity Reaction Status Date / Time pheniramine Allergy Unknown HALLUCINATI Verified 08/17/20 12:49 ONS phenyltoloxamine Allergy Unknown HALLUCINATI Verified 08/17/20 12:49 ONS pyrilamine Allergy Unknown HALLUCINATI Verified 08/17/20 12:49 ONS MUCINEX Allergy Unknown Swelling Uncoded 08/17/20 12:49 of throat. Consultations 11/12/21 16:27 ED Decision to Admit Stat 11/12/21 16:45 Consult Cardiology Routine Ordered Studies 11/13/21 10:26 US duplex renal artery Routine DOPPLER ULTRASOUND OF THE RENAL ARTERIES CLINICAL HISTORY: Hypertension. COMPARISON STUDY: No priors. TECHNIQUE: Doppler sonography of the renal arteries was performed to assess renal artery stenosis. Images are reviewed in the transverse and longitudinal planes. FINDINGS: The kidneys appear normal in size and echotexture. The right kidney measures 11.9 cm in length and the left kidney measures 13.0 cm in length. There is no hydronephrosis. On the right, intrarenal arterial resistive indices range from 0.45 to 0.61. Intrarenal arterial waveforms are normal with brisk upstrokes. The right renal arterial waveform is normal, and velocities within the mid to distal right renal artery measure up to 77 cm/sec. The proximal renal artery was not well visualized. The right renal vein is patent. On the left, intrarenal arterial resistive indices range from 0.42 to 0.59. Intrarenal arterial waveforms are normal with brisk upstrokes. The left renal arterial waveform is normal, and velocities within the distal left renal artery measure up to 37 cm/sec. The proximal to mid portions of the left renal artery are not visualized. The left renal vein is patent. The abdominal aorta is patent. Velocities within the abdominal aorta measure up to 90 cm/s. IMPRESSION: There is no sonographic evidence of renal artery stenosis. ACT 112: Negative or not required by law. Electronically signed by: Khris Foster M.D. 11/13/2021 4:11 PM Dictated:11/13/211608 Transcribed: 11/13/211608 XR chest 1V portable HISTORY: Atypical Chest Pain COMPARISON: None. FINDINGS: There are low lung volumes. The cardiac silhouette is mildly enlarged. No focal lung consolidations to suggest pneumonia. No evidence for pulmonary edema. No pleural fusions. No pneumothorax. IMPRESSION: Mild enlargement of the cardiac silhouette. This may be accentuated by the low lung volumes. ACT 112: Negative or not required by law. Electronically signed by: Griffin Maharaj M.D. 11/12/2021 3:57 PM Dictated:11/12/211555 Transcribed: 11/12/211555 Hospital Course (1) Left-sided chest pain: Chest pain possible due to Hypertensive urgency Troponin x3 negative EKG showed nonspecific T wave changes ECHO showed segmental left ventricular wall motion abnormalities. EF 55 to 60 % Cardiology on board plan to perform an outpatient ischemic evaluation prior to starting an exercise program Clinically improves Follow up with cardiology in 2 weeks Stable (2) Hypertensive emergency: BP on admission 241/157 Noncompliance with medication Doppler renal artery u/s showed no sonographic evidence of renal artery stenosis. overnight pulse oximetry showed no desaturation Lisinopril/HCTZ discontinued and starting on Maxide 37.5/25, Amlodipine 10mg and losartan 100mg Ok to d/c to home once systolic pressure less than 160 mmhg Continue monitor BP Check BMP outpatient in 1 week Abnormal TSH TSH 5.3 and Free T4 0.93 Will need to repeat TSH in 4 weeks Obesity BMI 53.5 Counseling on weight lost DVT px on heparin subq Code status Full code Total Time Total Time Spent Total Time Spent (In Minutes): 35 minutes Discharge Plan Discharge Items Patient Disposition: Home - Self-Care Reason For Visit: CHEST PRESSURE Discharge Diagnosis: Left-sided chest pain: Hypertensive emergency: Abnormal TSH Obesity Activity: Resume your previous activity Non-emergency contact: Primary Care Provider and Dope Edger Call non-emergency contact if: you have any medication questions Follow-up/Referrals: Monique Live, [Outside Practitioners] - (Date & Time 11/19/2021 5:00 PM Provider Monique Live, DO Department [facility] [address], [place] [id number] ) Diet: Low Sodium (2gm) Addtl Attending Provider Instructions: Follow up with your new primary care provider Dr. Live on 11/19/2021 @ 5:00 PM [facility] [address], [place] [id number] Follow up with cardiology Dr. Villa in 2-4 weeks Continue monitor your blood pressure and bring your blood pressure log at your next appointment with your provider Check TSH in 4 weeks to monitor your thyroid function Counseling on weight loss Check BMP in 1 week to monitor your renal function and electrolytes Seek medical attention if symptoms reoccur Pending Studies at Discharge: No Stand-Alone Forms: [facility], Work/School Release, Smoking Cessation Medications and DC Order Prescriptions: New triamterene-hydrochlorothiazid 37.5-25 mg Capsule 1 cap PO QAM 30 Days Qty: 30 RF: 0 amlodipine 10 mg tablet 10 mg PO DAILY Qty: 30 RF: 0 losartan 100 mg tablet 100 mg PO DAILY Qty: 30 RF: 0 Discontinued amlodipine 5 mg tablet 5 mg PO DAILY Qty: 30 RF: 0 Discharge Orders: Discharge Order (Routine); Ordered 11/14/21 Ordered By: Louis Mccabe/Other Patient Handouts: Controlling High Blood Pressure, Eating Heart- Healthy Foods Admission Data Admit Date/Time: 11/12/21 17:34 Attending Provider: Louis Catherine Admit Provider: Marta Borjas Primary Care Provider: PCP,NO Other Providers: Marta Borjas ; Igor Lennon Other Interventions: Discharge Summary Assessment (RN) Last Done: 11/14/21 16:29
--- NOTE | 2021-11-14 22:39 | Electrocardiogram Report ---
Test Reason : Blood Pressure : / mmHG Vent. Rate : 091 BPM Atrial Rate : 091 BPM P-R Int : 160 ms QRS Dur : 098 ms QT Int : 372 ms P-R-T Axes : 044 021 130 degrees QTc Int : 457 ms Normal sinus rhythm T wave abnormality, consider lateral ischemia Abnormal ECG No previous ECGs available Confirmed by Carlos Mendes ([id number]) on 11/14/2021 10:39:33 PM Referred By: REFERRED SELF Confirmed By:Carlos Mendes
--- NOTE | 2021-11-14 22:59 | Electrocardiogram Report ---
Test Reason : Blood Pressure : / mmHG Vent. Rate : 084 BPM Atrial Rate : 084 BPM P-R Int : 168 ms QRS Dur : 094 ms QT Int : 402 ms P-R-T Axes : 028 012 131 degrees QTc Int : 475 ms Normal sinus rhythm Minimal voltage criteria for LVH, may be normal variant T wave abnormality, consider lateral ischemia Possible Inferior infarct Prolonged QT Abnormal ECG When compared with ECG of 12-NOV-2021 15:07, QT has lengthened Confirmed by Carlos Mendes ([id number]) on 11/14/2021 10:59:34 PM Referred By: REFERRED SELF Confirmed By:Carlos Mendes
[2021-11-19 10:36] LABS: Metanephrine, Plasma <25 pg/mL (<=57); Normetanephrine Plasma 63 pg/mL (<=148); Total Metanephrine Plasma 63 pg/mL (<=205)
== END 2021-11-14 17:40 | disposition home or self-care (01) ==
LOC: 2S 14:45 → ED 14:45 → 2S 17:23 → SUATTDRO 17:34